=== PATIENT | male | born 1960 | race Caucasian/White ===

== ENCOUNTER 2019-11-15 04:14 | Emergency (ER) | payer BC ==
[2019-11-15 04:21] VITALS: BP 163/103
--- NOTE | 2019-11-15 04:37 | ED Physician Documentation ---
PD HPI BACK PAIN - Stated complaint Stated Complaint: BK/LEG PX - Chief complaint Chief Complaint: Back Pain - History obtained from History obtained from: Patient - History of Present Illness Timing - onset: How many days ago (5) Timing - duration: Days Timing - details: Abrupt onset Pain level now: 6 Location: Lower, Right Quality: Pain, Spasm Associated symptoms: No: Fever, Weakness, Numbness, Incontinent of urine, Unable to urinate, Incontinent of stool Improves with: Rest Worsened by: Movement Similar symptoms before: Has not had sx before Recently seen: Not recently seen - Additional information Additional information: while exercising 5 days ago, "tweaked my back" (per patient); he had sudden onse t of mild right lower back pain that has steadily worsened since then, becoming associated with pain radiating down RLE with mild paresthesias/numbness. has had a few previous milder episodes that were self-limited and didn't radiate from lower back; has not seen a physician nor been to an ED for back pain until tonight Review of Systems Constitutional: denies: Fever, Chills, Sweats GI: denies: Abdominal Pain, Nausea, Vomiting : denies: Dysuria, Frequency, Incontinent, Hematuria Skin: denies: Rash Musculoskeletal: reports: Back pain Neurologic: reports: Numbness. denies: Focal weakness PD PAST MEDICAL HISTORY - Past Medical History Past Medical History: Yes Cardiovascular: Hypertension - Past Surgical History Past Surgical History: Yes General: Other HEENT: Tonsil/Adenoidectomy - Present Medications Home Medications: Ambulatory Orders Medication Instructions Recorded Confirmed Cyclobenzaprine [Flexeril] 10 mg PO TID PRN #20 tablet 11/15/19 Multivitamin [Multiple Vitamins] 1 each PO 11/15/19 [place]-3/Dha/Epa/Fish Oil [[place] 3 1 each PO 11/15/19 500 Softgel] Oxycodone HCl/Acetaminophen 1 - 2 each PO Q6H PRN #14 tablet 11/15/19 [Percocet 5-325 mg Tablet] amLODIPine [Norvasc] 10 mg PO DAILY 11/15/19 11/15/19 - Allergies Allergies/Adverse Reactions: Allergies Allergy/AdvReac Type Severity Reaction Status Date / Time No Known Drug Allergies Allergy Verified 11/15/19 04:20 - Social History Does the pt smoke?: No Smoking Status: Never smoker Does the pt drink ETOH?: Yes Does the pt have substance abuse?: No - Immunizations Immunizations are current?: Yes PD ED PE NORMAL - Vitals Vital signs reviewed: Yes - General General: Alert and oriented X 3, No acute distress (NAD at rest, appears to have pain with movement involving lower back), Well developed/nourished - Abdomen Abdomen: Soft, Non tender - Back Back: No CVA TTP, No spinal TTP - Derm Derm: No rash - Neuro Neuro: No motor deficit, No sensory deficit, Other (1+/4 bilateral patellar DTR without clonus) Results - Vitals Vitals: Vital Signs - 24 hr 11/15/19 04:19 Temperature 37.1 C Heart Rate 69 Respiratory 18 Rate Blood Pressure 163/103 H O2 Saturation 96 Oxygen O2 Source Room air PD MEDICAL DECISION MAKING - ED course Complexity details: considered differential, d/w patient ED course: atraumatic low back pain x 5 days with no fever and no concerning findings on exam (no erythema, no midline tenderness, no rash, no weakness or significant numbness). emergent testing not indicated at this time, will trial with one-time dose PO decadron, rx analgesics and muscle relaxant, rest, f/u w/ PMD Departure - Departure Disposition: 01 Home, Self Care Clinical Impression: Sciatica Condition: Good Instructions: ED Sciatica Follow-Up: Santo Schreiber MD [Primary Care Provider] - Within 1 week Prescriptions: Cyclobenzaprine [Flexeril] 10 mg PO TID PRN #20 tablet PRN Reason: Spasms Oxycodone HCl/Acetaminophen [Percocet 5-325 mg Tablet] 1 - 2 each PO Q6H PRN #14 tablet PRN Reason: pain Discharge Date/Time: 11/15/19 05:08
[2019-11-15] MEDS ORDERED: HYDROcod/ACET 5/325 Prepack 4 PO STA (04:51)
[2019-11-15] MEDS ORDERED: CHERRY SYRUP 10 ML UDC PO ONE (04:51)
[2019-11-15] MEDS ORDERED: DEXAMETHASONE 10 MG/ML VIAL PO STA (04:51)
[2019-11-15] MEDS ORDERED: CYCLOBENZAPRINE 10 MG Prepack 2 PO PRN (04:51)
[2019-11-15] MEDS ORDERED: oxyCODONE/ACET 5/325 Prepack 4 PO STA (04:52)
== END 2019-11-15 05:08 | disposition home or self-care (01) ==
LOC: ED 04:14
DX: M54.41 Lumbago with sciatica, right side (principal); I10 Essential (primary) hypertension
CPT/HCPCS: 99282; 99284; A9270

== ENCOUNTER 2019-12-01 07:50 | Outpatient (CLI) | payer BC ==
--- NOTE | 2019-12-01 14:32 | MRI Report ---
Reason: LOW BACK PAIN Procedure Date: 12/01/2019 Accession Number: [id number] / [id number] Procedure: MRI - Lumbar Spine W/O CPT Code: Final Report FULL RESULT: EXAM: MRI LUMBAR SPINE WITHOUT CONTRAST EXAM DATE: 12/01/2019 01:59 PM. CLINICAL HISTORY: LOW BACK PAIN. COMPARISON: None. TECHNIQUE: Multiplanar, multisequence T1-weighted and fluid-sensitive sequences of the lumbar spine from T12 to S1 without contrast. Other: None. FINDINGS: Spinal Canal: The conus terminates at L1. The conus medullaris and cauda equina are unremarkable. Alignment: No scoliosis or spondylolisthesis. Bone Marrow: Five [id number] lumbar vertebral bodies are assumed. No gross fractures or bone lesions. No bone marrow replacement. Disk Levels/Facets: T12-L1: Unremarkable. L1-L2: Unremarkable. L2-L3: Unremarkable. L3-L4: There is a mild disk bulge. Mild bilateral facet hypertrophy. No significant central canal narrowing. There is mild left neural foraminal narrowing. L4-L5: There is disk height loss and endplate degenerative changes. There is moderate bilateral facet hypertrophy. There is mild osteophytosis of posterior endplate. Mild central canal narrowing. Moderate bilateral neural foraminal narrowing. L5-S1: Disk unremarkable. Mild bilateral facet hypertrophy. Moderate bilateral neural foraminal narrowing. Comment: The following findings are so common in adults without low back pain that while we report their presence, they must be interpreted with caution and in the context of the clinical situation. (Reference Jarvik et al, Spine 2001) Prevalence of findings in patients without low back pain: Disk degeneration (any evidence): 92% Disk desiccation/T2 signal loss: 83% Disk height loss: 56% Disk bulge: 64% Disk protrusion: 32% Annular tear/high intensity zone: 38% Musculature: Normal. No edema or fatty atrophy. Other: The partially visualized retroperitoneum is unremarkable. IMPRESSION: 1. L4-L5 endplate osteophytosis and facet hypertrophy with mild central canal narrowing. 2. Moderate bilateral L4-L5 and moderate bilateral L5-S1 neural foraminal narrowing. 3. Mild left L3-L4 neural foraminal narrowing. RADIA
== END 2019-12-01 07:51 | disposition home or self-care (01) ==
LOC: DI 07:50
PROVIDERS: ATTEND Registered Nurse
DX: M47.816 Spondylosis without myelopathy or radiculopathy, lumbar region (principal); M47.817 Spondylosis without myelopathy or radiculopathy, lumbosacral region; M51.36 Other intervertebral disc degeneration, lumbar region; M48.061 Spinal stenosis, lumbar region without neurogenic claudication; M48.07 Spinal stenosis, lumbosacral region
CPT/HCPCS: 72148

== ENCOUNTER 2023-03-07 11:40 | Emergency (ER) | payer BC ==
[2023-03-07 12:00] VITALS: BP 188/79
--- NOTE | 2023-03-07 14:05 | ED Physician Documentation ---
PD HPI UPPER EXT INJURY - Stated complaint Stated Complaint: PX ON LT THUMB - Chief complaint Chief Complaint: Ext Problem - History obtained from History obtained from: Patient - History of Present Illness Location: Left, Finger (pain base of thumb after jamming it 2 weeks ago, striking the tip forcefully during karate practice.) Type of injury: Blunt / blow Timing - onset: How many weeks ago (2) Timing - duration: Weeks (2) Timing - details: Abrupt onset, Still present Worsened by: Moving (flexion and opposition are mostly painful.), Palpating (near base of thumb.) Associated symptoms: No: Weakness, Numbness, Swelling Similar symptoms before: Has not had sx before Review of Systems Neurologic: denies: Focal weakness, Numbness PD PAST MEDICAL HISTORY - Past Medical History Cardiovascular: Hypertension - Past Surgical History Past Surgical History: Yes General: Other HEENT: Tonsil/Adenoidectomy - Present Medications Home Medications: Ambulatory Orders Medication Instructions Recorded Confirmed Cyclobenzaprine [Flexeril] 10 mg PO TID PRN #20 tablet 11/15/19 Multivitamin [Multiple Vitamins] 1 each PO 11/15/19 [place]-3/Dha/Epa/Fish Oil [[place] 3 1 each PO 11/15/19 500 Softgel] Oxycodone HCl/Acetaminophen 1 - 2 each PO Q6H PRN #14 tablet 11/15/19 [Percocet 5-325 mg Tablet] amLODIPine [Norvasc] 10 mg PO DAILY 11/15/19 11/15/19 - Allergies Allergies/Adverse Reactions: Allergies Allergy/AdvReac Type Severity Reaction Status Date / Time No Known Drug Allergies Allergy Verified 03/07/23 11:59 - Social History Does the pt smoke?: No Smoking Status: Never smoker Does the pt drink ETOH?: Yes Does the pt have substance abuse?: No - Immunizations Immunizations are current?: Yes PD ED PE NORMAL - Vitals Vital signs reviewed: Yes - General General: Alert and oriented X 3, No acute distress, Well developed/nourished - Derm Derm: Normal color, Warm and dry - Extremities Extremities: Other (base of thumb tender at radial side. No pain/laxity with UCL stress. pain with collateral stress but not loose. not painful for hyperextension of thumb. IP joint not tender to palp/stress. ) Results - Vitals Vitals: Oxygen O2 Source Room air - Rads (name of study) thumb Relevant Findings:: Prelim report reviewed, EMP independent interpretation of test (no fracture nor dislocation. ), See rad report PD Medical Decision Making - ED course Complexity details: reviewed results, considered differential (thumb sprain without laxity. Not tender at UCL and is not c/w EPL tendonitis. ), d/w patient Departure - Departure Disposition: 01 Home, Self Care Clinical Impression: Injury of collateral ligament of finger of left hand Qualifiers: Encounter type: initial encounter Qualified Code(s): S69.92XA - Unspecified injury of left wrist, hand and finger(s), initial encounter Condition: Stable Record reviewed to determine appropriate education?: Yes Instructions: ED Sprain Finger Follow-Up: Santo Schreiber MD [Primary Care Provider] - [facility] [Provider Group] Comments: Your x-ray is normal without any signs of bony abnormality (fractures, avulsions). On exam your ligaments feel sturdy and I do not believe that you tore the ligaments but apparently sprained/strained them. It think if you support the thumb more with the splint much of the time over the next week or so that should allow it mom to heal up better. Most the time it would have healed which is less activity as you have been doing. But since its not healing well yet, we can add the splinting. You can have the splint off at times for gentle range of motion. I would suggest some regular anti-inflammatory such as ibuprofen or naproxen 2 to 3 tablets twice daily for the next week as well. Recheck if not improved with these after a week or so. Follow-up with orthopedics if needed. Discharge Date/Time: 03/07/23 14:41
--- NOTE | 2023-03-08 07:07 | XRAY Report ---
PROCEDURE: Finger(s) LT INDICATIONS: Trauma/pain at base of thumb TECHNIQUE: AP hand, 2 views of the thumb acquired. COMPARISON: None. FINDINGS: Bones: No fractures or dislocations. No suspicious bony lesions. Soft tissues: No suspicious soft tissue calcifications or masses. IMPRESSION: No evidence of acute bony abnormality of the left thumb Reviewed by: Elvis Naranjo MD on 03/07/2023 12:26 PM PDT Approved by: Elvis Naranjo MD on 03/07/2023 12:26 PM PDT Station ID: [id number]
== END 2023-03-07 14:41 | disposition home or self-care (01) ==
LOC: ED 11:40
DX: S69.92XA Unspecified injury of left wrist, hand and finger(s), initial encounter (principal); W23.0XXA Caught, crushed, jammed, or pinched between moving objects, initial encounter; Y93.75 Activity, martial arts; I10 Essential (primary) hypertension
CPT/HCPCS: 99283